=== PATIENT | male | born 1980 | race Caucasian/White ===

== ENCOUNTER 2017-10-11 10:28 | Emergency (ER) | payer MEDICARE ==
[~2017-10-11] VITALS: Ht 175.3 cm; Wt 99.8 kg
[2017-10-11] MEDS ORDERED: ASPIRIN 81 MG CHEW TAB PO ONE (10:45)
--- NOTE | 2017-10-11 11:13 | Diagnostic Imaging Report ---
PROCEDURE: A single AP view of the chest. COMPARISON: None. INDICATIONS: SHORTNESS OF BREATH, CHEST PAIN FINDINGS: Lines/tubes: None. Lungs: Low lung volumes. No focal consolidation. There is no evidence of pneumonia or pulmonary edema. Pleura: There is no pleural effusion or pneumothorax. Heart and mediastinum: The heart and the mediastinum are unremarkable. Bones: No acute bony abnormality. IMPRESSION: 1. No acute cardiopulmonary disease. Dictated by: Leif Ovalle M.D. on 10/11/2017 at 11:17 Electronically approved by: Leif Ovalle M.D. on 10/11/2017 at 11:17
[2017-10-11 11:32] LABS: BASOPHILS % 0.4 % (0.0-1.0); EOSINOPHILS # (AUTO) 0.1 (0.0-0.4); EOSINOPHILS % 1.1 % (0.0-6.0); HEMATOCRIT 45.4 % (38.2-49.6); LYMPHOCYTES # (AUTO) 1.8 (1.0-3.2); LYMPHOCYTES % 16.2 % (18.0-39.1); MEAN CORPUSCULAR HEMOGLOBIN 31.6 pg (28-32); MEAN CORPUSCULAR HGB CONC 35.2 g/dL (31-35); MEAN CORPUSCULAR VOLUME 89.7 fL (81-99); MONOCYTES % 8.9 % (4.4-11.3); NEUTROPHILS % 73.1 % (38.7-80.0); PLATELET COUNT 278 x10e3/uL (140-360); RED BLOOD COUNT 5.06 x10e6/uL (4.3-5.7); RED CELL DISTRIBUTION WIDTH 12.8 % (11.7-14.4)
[2017-10-11 11:34] LABS: CLARITY,URINE CLEAR (CLEAR); COLOR,URINE YELLOW (YELLOW)
[2017-10-11 11:35] LABS: BILIRUBIN,URINE NEGATIVE (NEGATIVE); KETONES,URINE NEGATIVE (NEGATIVE); LEUKOCYTE ESTERASE ,URINE 2+ (NEGATIVE); NITRITE,URINE NEGATIVE (NEGATIVE); PROTEIN,URINE DIPSTICK NEGATIVE (NEGATIVE); URINE UROBILINOGEN 0.2 mg/dL (0.2 - 1)
[2017-10-11 11:43] LABS: AMPHETAMINES SCREEN,URINE NEGATIVE (NEGATIVE); BENZODIAZEPINES SCREEN,URINE NEGATIVE (NEGATIVE); PHENCYCLIDINE SCREEN,URINE NEGATIVE (NEGATIVE)
[2017-10-11 11:47] LABS: EPITHELIAL CELLS,URINE RARE /LPF; RBC,URINE 0-5 /HPF (0-5)
[2017-10-11 11:48] LABS: URIC ACID CRYSTALS,URINE RARE (FEW)
[2017-10-11 11:50] LABS: ALANINE AMINOTRANSFERASE 49 IU/L (0-55); ALBUMIN/GLOBULIN RATIO 1.3 (0.8-2.0); ALKALINE PHOSPHATASE 62 IU/L (40-150); ANION GAP 11.9 mmol/L (8-16); BLOOD UREA NITROGEN 15 mg/dL (7-26); BUN/CREATININE RATIO 19 (6-25); CALCIUM 9.2 mg/dL (8.4-10.2); CARBON DIOXIDE 19 mmol/L (22-29); CHLORIDE 112 mmol/L (98-107); CREATINE KINASE 193 IU/L (30-200); CREATININE, SERUM 0.81 mg/dL (0.72-1.25); EST GLOMERULAR FILTRATION RATE > 60 ML/MIN (60-); GLUCOSE 112 mg/dL (74-118); POTASSIUM 3.9 mmol/L (3.5-5.1); SODIUM 139 mmol/L (136-145)
[2017-10-11] MEDS ORDERED: PANTOPRAZOLE 40 MG 10ML VIAL IV STA (12:18)
[2017-10-11] MEDS ORDERED: METOPROLOL SUCCINATE 50 MG TAB XL PO STA (12:18)
[2017-10-11] MEDS ORDERED: DONNATAL/LIDOCAINE/MAALOX 30 ML SUSP PO STA (12:18)
[2017-10-11 12:54] VITALS: BP 156/105
== END 2017-10-11 13:16 | disposition home or self-care (01) ==
LOC: ER 10:28
DX: R07.89 Other chest pain (principal); I10 Essential (primary) hypertension; K21.9 Gastro-esophageal reflux disease without esophagitis; F17.210 Nicotine dependence, cigarettes, uncomplicated
CPT/HCPCS: 36415; 71045; 80053; 80307; 81001; 82550; 82553; 84484; 85025; 93005; 99284

== ENCOUNTER → 2017-11-01 | Outpatient (CLI) | payer MEDICARE ==
[~2017-11-01] MED LIST: IOPAMIDOL 370 MG/ML 200 ML INFUS..BTL INJ ONE; SODIUM CHLORIDE 0.9% 50ML 50 ML ONE
[2017-11-01 12:51] LABS: BLOOD UREA NITROGEN 15 mg/dL (7-26); BUN/CREATININE RATIO 16 (6-25); CREATININE, SERUM 0.91 mg/dL (0.72-1.25); EST GLOMERULAR FILTRATION RATE > 60 ML/MIN (60-)
--- NOTE | 2017-11-01 13:05 | Diagnostic Imaging Report ---
EXAM: Scrotal Ultrasound with Duplex INDICATION: \S\LEFT TESTICULAR SWELLING COMPARISON: None TECHNIQUE: Transverse and longitudinal images were obtained of the scrotum with grayscale imaging, color Doppler and spectral waveform analysis. FINDINGS: Right testis: Size: 4.3 x 2.6 x 3 cm, normal in size. Echogenicity: Normal Mass/Cysts: None Left testis: Size: 4.4 x 2.4 x 3.3 cm, normal in size. Echogenicity: Normal Mass/Cysts: None. 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 Epididymis: Appearance: Normal in size without increased vascularity. Mass/Cysts: 0.3 cm left epididymal head cyst/spermatocele. Extratesticular: Masses: None Hydrocele: None Varicocele: None Doppler: Normal arterial flow to both testes and symmetrical flow on color Doppler evaluation is seen. No evidence of testicular torsion. IMPRESSION: 1. No evidence of testicular torsion. 2. Ectasia of the left rete testis and a subcentimeter left epididymal head cyst/spermatocele. Otherwise, unremarkable scrotal ultrasound. Signed by: Dr. Leif Ovalle MD on 11/01/2017 1:02 PM
--- NOTE | 2017-11-01 14:14 | Diagnostic Imaging Report ---
EXAM: CT Chest WITH contrast 11/01/2017 11:38 AM INDICATION: \[id number] \S\[id number] \S\DYSPNEA COMPARISON: Chest x-ray dated 10/11/2017 TECHNIQUE: Chest was scanned utilizing a multidetector helical scanner from the lung apex through the level of the adrenal glands without administration of IV contrast. Coronal and sagittal reformations were obtained. Routine protocol was performed. IV CONTRAST: 100 mL of Isovue-370 COMPLICATIONS: None RADIATION DOSE: Total DLP: 493.66 mGy*cm Estimated effective dose: (DLP x 0.014 x size factor) mSv CTDIvol has been reviewed. It is below the limits set by the Radiation Protocol Committee (RPC). FINDINGS: LINES/ TUBES: None. LUNGS AND AIRWAYS: The lungs are unremarkable. Punctate left lower lobe calcified granuloma. Minimal subsegmental atelectasis. Airways are normal. PLEURA: The pleural spaces are clear. HEART AND MEDIASTINUM: The visualized thyroid gland is normal. No mediastinal, hilar or axillary lymphadenopathy. The heart is normal in size.. There is no pericardial effusion. UPPER ABDOMEN: Hepatic steatosis. BONES: The visualized bony thorax is within normal limits. Median sternotomy wires. SOFT TISSUES: Scattered metallic densities are seen in the left axillary, left lung, right chest wall, anterior pericardial, and right diaphragmatic surface. IMPRESSION: No acute thoracic abnormality. Hepatic steatosis. Signed by: Dr. Leif Ovalle MD on 11/01/2017 2:11 PM
== END ==
LOC: US 11:27
PROVIDERS: ATTEND Internal Medicine
DX: N50.89 Other specified disorders of the male genital organs (principal); R06.00 Dyspnea, unspecified
CPT/HCPCS: 36415; 71260; 76870; 82565; 84520; 93976; Q9967